=== PATIENT | female | born 1975 | race Caucasian/White ===

== ENCOUNTER 2019-06-27 17:34 | Emergency (ER) | payer MEDICAID ==
[~2019-06-27] VITALS: Ht 180.3 cm; Wt 59.1 kg
[~2019-06-27 17:34] MED LIST: ALBU18HF2 INH; ALBU2.5V12 NEB; ALPR-623 PO; CALC-793 PO; DOCU-28 PO; DULO-31 PO; FERR-86 PO; LORA10TA7 PO; LYR75C PO; MAGN400C PO; METH-603 PO; NICO-631 TD; NORCO10T PO; OMEP20CA11 PO; POLY17PO10 PO; TEMA15CA PO
[2019-06-27 17:45] VITALS: BP 103/57
--- NOTE | 2019-06-27 18:34 | NUR ---
pt to [facility]
== END 2019-06-27 20:17 | disposition home or self-care (01) ==
LOC: ER 17:35
DX: S82.142A Displaced bicondylar fracture of left tibia, initial encounter for closed fracture (principal); J45.909 Unspecified asthma, uncomplicated; G89.29 Other chronic pain; F15.90 Other stimulant use, unspecified, uncomplicated; Z86.14 Personal history of Methicillin resistant Staphylococcus aureus infection; Z90.710 Acquired absence of both cervix and uterus; Z98.890 Other specified postprocedural states; Z88.1 Allergy status to other antibiotic agents; Z88.2 Allergy status to sulfonamides; Z79.899 Other long term (current) drug therapy; W18.39XA Other fall on same level, initial encounter; Y93.89 Activity, other specified; Y92.89 Other specified places as the place of occurrence of the external cause; Y99.8 Other external cause status
CPT/HCPCS: 29530; 73590; 73700; 99284